=== PATIENT | female | born 1955 | race Caucasian/White ===

== ENCOUNTER → 2023-10-28 10:31 | Outpatient (REF) | payer OTHER, SELFPAY | LOC: HWRAD 10:31 | PROVIDERS: ATTENDING PHYSICIAN Family Medicine | DX: R91.1 Solitary pulmonary nodule (principal); K86.1 Other chronic pancreatitis; R52 Pain, unspecified | CPT/HCPCS: 71260; Q9967 ==

== ENCOUNTER → 2023-11-10 12:19 | Outpatient (REF) | payer OTHER, SELFPAY | LOC: HWRAD 12:19 | PROVIDERS: ATTENDING PHYSICIAN Family Medicine | DX: R91.1 Solitary pulmonary nodule (principal); K86.1 Other chronic pancreatitis | CPT/HCPCS: 71260; 74177; Q9967 ==

== ENCOUNTER → 2023-12-08 10:20 | Outpatient (REF) | payer OTHER, SELFPAY | LOC: HWRAD 10:20 | PROVIDERS: ATTENDING PHYSICIAN Nurse Practitioner Adult Health; FAMILY PHYSICIAN Family Medicine | DX: R10.2 Pelvic and perineal pain (principal) | CPT/HCPCS: 76830; 76856 ==

== ENCOUNTER → 2024-04-16 10:26 | Outpatient (REF) | payer OTHER, SELFPAY | LOC: WDC 10:26 | PROVIDERS: ATTENDING PHYSICIAN Family Medicine | DX: Z12.31 Encounter for screening mammogram for malignant neoplasm of breast (principal) | CPT/HCPCS: 77063; 77067 ==

== ENCOUNTER → 2025-04-18 13:20 | Outpatient (REF) | payer OTHER, SELFPAY | LOC: WDC 13:20 | PROVIDERS: ATTENDING PHYSICIAN Nurse Practitioner Adult Health; FAMILY PHYSICIAN Family Medicine | DX: Z12.31 Encounter for screening mammogram for malignant neoplasm of breast (principal) | CPT/HCPCS: 77063; 77067 ==